=== PATIENT | male | born 1970 | race Caucasian/White ===

== ENCOUNTER → 2023-06-14 07:33 | Outpatient (REF) | payer BC, SELFPAY ==
[2023-06-14 08:57] LABS: ALT (SGPT) 83 U/L (0-50); AST (SGOT) 54 U/L (17-59); Albumin 4.4 g/dl (3.5-5.0); Alkaline Phosphatase 63 U/L (38-126); Blood Urea Nitrogen 29 mg/dl (9-20); Calcium 9.8 mg/dl (8.4-10.2); Carbon Dioxide 24 mmol/L (22-30); Chloride 99 mmol/L (98-107); Glucose 114 mg/dl (70-99); Potassium 4.5 mmol/L (3.5-5.1); Sodium 137 mmol/L (135-145); Total Bilirubin 1.2 mg/dl (0.2-1.3); Total Protein 6.7 g/dl (6.3-8.2); eGFR > 60.00
== END ==
LOC: REG 07:33
PROVIDERS: ATTENDING PHYSICIAN Internal Medicine Cardiovascular Disease; FAMILY PHYSICIAN Internal Medicine
DX: R94.5 Abnormal results of liver function studies (principal)
CPT/HCPCS: 36415; 80053

== ENCOUNTER → 2023-07-05 06:35 | Day surgery (SDC) | payer BC, SELFPAY | LOC: GI 06:35 | PROVIDERS: ATTENDING PHYSICIAN Internal Medicine Gastroenterology | DX: Z12.11 Encounter for screening for malignant neoplasm of colon (principal); K57.30 Diverticulosis of large intestine without perforation or abscess without bleeding; K64.8 Other hemorrhoids | CPT/HCPCS: G0121 ==

== ENCOUNTER → 2023-07-27 07:27 | Outpatient (REF) | payer BC, SELFPAY ==
[2023-07-27 09:24] LABS: ALT (SGPT) 72 U/L (0-50); AST (SGOT) 61 U/L (17-59)
== END ==
LOC: REG 07:27
PROVIDERS: ATTENDING PHYSICIAN Otolaryngology; FAMILY PHYSICIAN Internal Medicine
DX: R74.01 Elevation of levels of liver transaminase levels (principal)
CPT/HCPCS: 36415; 84450; 84460

== ENCOUNTER → 2023-08-05 18:17 | Outpatient (REF) | payer BC, SELFPAY | LOC: CLAB 18:17 | PROVIDERS: ATTENDING PHYSICIAN Otolaryngology | DX: Z41.1 Encounter for cosmetic surgery (principal); N62 Hypertrophy of breast | CPT/HCPCS: 88305 ==

== ENCOUNTER → 2023-09-17 17:17 | Outpatient (REF) | payer BC, SELFPAY | LOC: MRI 17:17 | PROVIDERS: ATTENDING PHYSICIAN Internal Medicine Gastroenterology; FAMILY PHYSICIAN Internal Medicine | DX: K85.00 Idiopathic acute pancreatitis without necrosis or infection (principal) | CPT/HCPCS: 74183; A9575 ==

== ENCOUNTER → 2024-09-30 08:10 | Outpatient (REF) | payer BC, SELFPAY ==
[2024-09-30 10:00] LABS: ALT (SGPT) 187 U/L (0-50); AST (SGOT) 95 U/L (17-59); Albumin 4.7 g/dl (3.5-5.0); Alkaline Phosphatase 60 U/L (38-126); Blood Urea Nitrogen 19 mg/dl (9-20); Calcium 9.4 mg/dl (8.4-10.2); Carbon Dioxide 22 mmol/L (22-30); Chloride 107 mmol/L (98-107); Glucose 92 mg/dl (70-99); HDL Cholesterol 18 mg/dl; LDL Cholesterol, Calculated 61 mg/dl; Potassium 4.7 mmol/L (3.5-5.1); Sodium 138 mmol/L (135-145); Total Bilirubin 1.4 mg/dl (0.2-1.3); Total Cholesterol 111 mg/dl (50-199); Total Protein 6.9 g/dl (6.3-8.2); Triglyceride 163 mg/dl (10-149); Very Low Density Lipoprotein 32 mg/dl (0-30); eGFR > 60.00
== END ==
LOC: REG 08:10
PROVIDERS: ATTENDING PHYSICIAN Internal Medicine Cardiovascular Disease; FAMILY PHYSICIAN Internal Medicine
DX: E78.2 Mixed hyperlipidemia (principal)
CPT/HCPCS: 36415; 80053; 80061

== ENCOUNTER → 2024-10-24 07:18 | Outpatient (REF) | payer BC, SELFPAY ==
[2024-10-24 09:02] LABS: ALT (SGPT) 60 U/L (0-50); AST (SGOT) 50 U/L (17-59)
== END ==
LOC: REG 07:18
PROVIDERS: ATTENDING PHYSICIAN Nurse Practitioner; FAMILY PHYSICIAN Internal Medicine
DX: R94.5 Abnormal results of liver function studies (principal)
CPT/HCPCS: 36415; 84450; 84460

== ENCOUNTER → 2025-04-02 07:25 | Outpatient (REF) | payer BC, SELFPAY ==
[2025-04-02 08:08] LABS: Hematocrit 52.5 % (39.0-52.0); Hemoglobin 18.1 g/dL (13.0-18.0); Mean Corp Hgb Conc. 34.5 g/dL (33.0-37.0); Mean Corpuscular Volume 89.4 fL (80.0-94.0); Nucleated Red Blood Cells % 0 % (-); Platelet Count 230 10^3/uL (130-400); Red Cell Dist. Width 12.9 % (11.5-14.5)
[2025-04-02 08:43] LABS: ALT (SGPT) 55 U/L (0-50); AST (SGOT) 55 U/L (17-59); Albumin 4.8 g/dl (3.5-5.0); Alkaline Phosphatase 75 U/L (38-126); Blood Urea Nitrogen 14 mg/dl (9-20); Calcium 9.6 mg/dl (8.4-10.2); Carbon Dioxide 30 mmol/L (22-30); Chloride 100 mmol/L (98-107); Glucose 105 mg/dl (70-99); HDL Cholesterol 28 mg/dl; LDL Cholesterol, Calculated 54 mg/dl; Potassium 4.7 mmol/L (3.5-5.1); Sodium 138 mmol/L (135-145); Total Protein 7.5 g/dl (6.3-8.2); Very Low Density Lipoprotein 26 mg/dl (0-30); eGFR > 60.00
[2025-04-02 09:06] LABS: TSH 1.38 uIU/ml (0.47-4.68)
[2025-04-02 10:02] LABS: Glycohemoglobin (HgbA1c) 5.4 % (4.0-5.9)
[2025-04-04 03:37] LABS: Lipoprotein a (Lp a) <6 mg/dL (<=29)
== END ==
LOC: REG 07:25
PROVIDERS: ATTENDING PHYSICIAN Student in an Organized Health Care Education/Training Program
DX: E78.2 Mixed hyperlipidemia (principal)
CPT/HCPCS: 36415; 80053; 80061; 83036; 83695; 84443; 85025